=== PATIENT | male | born 1975 | race American Indian/Alaskan Native ===

== ENCOUNTER 2020-11-19 08:29 | Outpatient (CLI) | payer OTHER ==
--- NOTE | 2020-11-19 12:53 | Treadmill Report ---
[facility] Test Date: 2020-11-19 Test Time: 10:04:00 Pat Name: EVA CARUSO Department: Room: Gender: M Director Communications: Kelly Llanos : 1975 Requested By: EPIFANIO KHAN Order Number: [id number] Reading MD: Yas Houston Interpretive Statements No chest pain with exercise to 10 minutes and 30 seconds of a Spenser protocol. Very good exercise tolerance. Normal heart rate and blood pressure response. No ST changes of ischemia. No significant dysrhythmias. Normal exercise ECG test. Electronically Signed On 11-19-2020 12:53:03 EDT by Yas Houston
== END 2020-11-19 08:30 | disposition home or self-care (01) ==
LOC: CARD 08:29
PROVIDERS: ATTEND Internal Medicine
DX: I10 Essential (primary) hypertension (principal); R07.9 Chest pain, unspecified
CPT/HCPCS: 93017